=== PATIENT | female | born 1950 | race Two or more races ===

== ENCOUNTER 2025-09-13 22:43 | Emergency (ER) | payer OTHER ==
[~2025-09-13] VITALS: Ht 160 cm; Wt 81.6 kg
[2025-09-13] MEDS ORDERED: 0.9 % SODIUM CHLORIDE 500 ML IV ONE (23:30)
[2025-09-13] MEDS ORDERED: ORPHENADRINE CITRATE 30 MG/ML AMPUL IM STA (23:32)
[2025-09-13] MEDS ORDERED: ONDANSETRON HCL 2 MG/ML VIAL IV STA (23:33)
[2025-09-14] MEDS ORDERED: ORPHENADRINE CITRATE 30 MG/ML AMPUL ONE (00:04)
[2025-09-14] MEDS ORDERED: ONDANSETRON HCL 2 MG/ML VIAL ONE (00:04)
[2025-09-14 00:51] LABS: BASO % 0.7 % (0.1-1.2); EOS # 0.09 (0.04-0.54); EOS % 0.7 % (0.7-7.0); LYMPH # 2.73 (1.18-3.74); LYMPH % 21.6 % (19.3-53.1); MEAN PLATELET VOLUME 10.90 fl (9.4-12.4); MONO # 0.69 (0.24-0.82); MONO % 5.5 % (4.7-12.5); NEUT # 9.00 (1.56-6.13); NEUT % 71.0 % (34.0-71.1); RED CELL DISTRIBUTION WIDTH 13.5 % (11.6-14.4)
[2025-09-14 01:03] LABS: ALT/SGPT 22.0 U/L (12-78); AST/SGOT 17.0 U/L (15-37); BILIRUBIN TOTAL 0.29 mg/dL (0.3-1.2); BUN CREA RATIO 17.0 (7.0-25.0); CREATININE SERUM 1.05 mg/dL (0.55-1.02); GFR 51.09; GLOBULINA 4.3 G/DL (2.4-3.5); GLUCOSE FASTING 158.0 mg/dL (65-100); OSMOLALITY SERUM 292.0 MOSM/KG (275-295)
== END 2025-09-14 06:59 | disposition designated cancer center or children's hospital (05) ==
LOC: ER 22:43
PROVIDERS: General Practice
DX: I60.9 Nontraumatic subarachnoid hemorrhage, unspecified (principal); S09.8XXA Other specified injuries of head, initial encounter; W18.39XA Other fall on same level, initial encounter; Y93.89 Activity, other specified; Y92.018 Other place in single-family (private) house as the place of occurrence of the external cause; Z88.0 Allergy status to penicillin; Z91.013 Allergy to seafood; Z91.018 Allergy to other foods